=== PATIENT | male | born 1990 | race Caucasian/White ===

== ENCOUNTER 2017-07-11 09:04 | Emergency (ER) | payer SELFPAY ==
[~2017-07-11] VITALS: Ht 170.2 cm; Wt 75.5 kg
[2017-07-11] MEDS ORDERED: PERCOCET 5/31 TABLET PO (10:24)
[2017-07-11 10:43] VITALS: BP 121/67
== END 2017-07-11 10:45 | disposition home or self-care (01) ==
LOC: EME 09:04
DX: S40.012A Contusion of left shoulder, initial encounter (principal); S60.222A Contusion of left hand, initial encounter; M54.6 Pain in thoracic spine; W20.8XXA Other cause of strike by thrown, projected or falling object, initial encounter
CPT/HCPCS: 71045; 73030; 73130; 99281; 99283

== ENCOUNTER → 2017-08-03 | Emergency (ER) | payer SELFPAY ==
[~2017-08-03] VITALS: Ht 170.2 cm; Wt 75.3 kg
[~2017-08-03] MED LIST: NAPROSYN500 MG PO; PERCOCET 5/31 TABLET PO; PREDNISONE10 MG PO; VALIUM2 MG PO
[2017-08-03 09:23] VITALS: BP 138/81
== END | disposition home or self-care (01) ==
LOC: EME 09:20
DX: M54.5 Low back pain (principal); F17.200 Nicotine dependence, unspecified, uncomplicated
CPT/HCPCS: 99281; 99283